=== PATIENT | female | born 1935 | race Two or more races ===

== ENCOUNTER 2024-04-25 02:35 | Emergency (ER) | payer OTHER ==
[~2024-04-25] VITALS: Ht 157.5 cm; Wt 63.5 kg
[2024-04-25] MEDS ORDERED: KETOROLAC TROMETHAMINE 10 MG TABLET PO STA (04:55)
[2024-04-25] MEDS ORDERED: MELOXICAM15 MG PO (05:29)
[2024-04-25] MEDS ORDERED: KETOROLAC TROMETHAMINE 10 MG TABLET PO ONE (05:33)
== END 2024-04-25 05:42 ==
LOC: ER 02:35
DX: S09.8XXA Other specified injuries of head, initial encounter (principal); W19.XXXA Unspecified fall, initial encounter; Y93.89 Activity, other specified; Y92.89 Other specified places as the place of occurrence of the external cause; Y99.8 Other external cause status; I10 Essential (primary) hypertension